=== PATIENT | female | born 1945 | race Caucasian/White ===

== ENCOUNTER 2017-09-03 15:20 | Emergency (ER) | payer OTHER ==
[~2017-09-03 15:20] MED LIST: ACETAMINOPHEN/H1 TA6 PO; BACO TOP; HIBICLENS118 ML TOP; LIO10 PO; METHOCARBAMOL500 MG PO; NEU300 PO; Rocephin IV; ULT50 PO; ZESTRIL5 MG PO
[2017-09-03 19:20] VITALS: BP 161/98
== END 2017-09-03 19:15 | disposition home or self-care (01) ==
LOC: ED 15:20
DX: S20.212A Contusion of left front wall of thorax, initial encounter (principal); S40.012A Contusion of left shoulder, initial encounter; M50.30 Other cervical disc degeneration, unspecified cervical region; M19.90 Unspecified osteoarthritis, unspecified site; W18.30XA Fall on same level, unspecified, initial encounter; Y93.89 Activity, other specified; Y99.9 Unspecified external cause status; Y92.89 Other specified places as the place of occurrence of the external cause
CPT/HCPCS: J1170

== ENCOUNTER 2019-07-01 00:49 | Emergency (ER) | payer OTHER ==
[~2019-07-01] VITALS: Ht 162.6 cm; Wt 79.4 kg
[2019-07-01 00:57] VITALS: Ht 162.6 cm; Wt 79.4 kg
[2019-07-01 03:08] VITALS: BP 155/80
== END 2019-07-01 03:08 | disposition home or self-care (01) ==
LOC: ED 00:49
DX: S39.012A Strain of muscle, fascia and tendon of lower back, initial encounter (principal); G89.29 Other chronic pain; M54.2 Cervicalgia; M19.90 Unspecified osteoarthritis, unspecified site; X50.9XXA Other and unspecified overexertion or strenuous movements or postures, initial encounter; Y93.89 Activity, other specified; Y92.099 Unspecified place in other non-institutional residence as the place of occurrence of the external cause; Y99.8 Other external cause status
CPT/HCPCS: J1885; Q0092

== ENCOUNTER 2019-08-12 12:56 | Emergency (ER) | payer OTHER ==
[~2019-08-12] VITALS: Ht 165.1 cm; Wt 66.7 kg
[2019-08-12 13:02] VITALS: Ht 165.1 cm; Wt 66.7 kg
[2019-08-12 14:27] LABS: BASOPHIL % 0.9 % (0-2); PLATELET COUNT 290 x10^3mcL (130-400); RED CELL DISTRIBUTION WIDTH 13.8 % (11.5-14.5)
[2019-08-12 15:00] LABS: CALCIUM 8.5 mg/dL (8.5-10.1); CARBON DIOXIDE 28.7 mmol/L (21-32); CHLORIDE SERUM 107 mmol/L (98-107); CREATININE SERUM 0.7 mg/dL (0.6-1.0); GLUCOSE SERUM 85 mg/dL (74-106); POTASSIUM SERUM 3.8 mmol/L (3.5-5.1); SODIUM SERUM 142 mmol/L (136-145)
[2019-08-12 15:05] LABS: ALKALINE PHOSPHATASE 113 U/L (46-116); ALT/SGPT 19 U/L (14-59); AST/SGOT 22 U/L (15-37); LIPASE 73 IU/L (73-393)
[2019-08-12 15:07] LABS: ALBUMIN 3.3 g/dL (3.4-5.0)
[2019-08-12 18:30] VITALS: BP 165/87
== END 2019-08-12 18:30 | disposition home or self-care (01) ==
LOC: ED 12:56
PROVIDERS: Emergency Medicine
DX: K59.00 Constipation, unspecified (principal)
CPT/HCPCS: J2270; Q9967

== ENCOUNTER 2019-09-15 03:39 | Emergency (ER) | payer OTHER ==
[~2019-09-15] VITALS: Ht 165.1 cm; Wt 63.5 kg
[2019-09-15 03:49] VITALS: Ht 165.1 cm; Wt 63.5 kg
[2019-09-15 05:00] VITALS: BP 154/94
== END 2019-09-15 05:37 | disposition home or self-care (01) ==
LOC: ED 03:39
DX: S32.020A Wedge compression fracture of second lumbar vertebra, initial encounter for closed fracture (principal); N39.0 Urinary tract infection, site not specified; M19.90 Unspecified osteoarthritis, unspecified site; G89.29 Other chronic pain; M54.2 Cervicalgia; X58.XXXA Exposure to other specified factors, initial encounter; Y93.89 Activity, other specified; Y92.89 Other specified places as the place of occurrence of the external cause; Y99.8 Other external cause status
CPT/HCPCS: J1885

== ENCOUNTER 2019-09-28 18:03 | Emergency (ER) | payer OTHER ==
[~2019-09-28] VITALS: Ht 165.1 cm; Wt 77.1 kg
[2019-09-28 19:00] VITALS: Ht 165.1 cm; Wt 77.1 kg
[2019-09-28 20:06] LABS: PLATELET COUNT 344 x10^3mcL (130-400); RED CELL DISTRIBUTION WIDTH 13.8 % (11.5-14.5)
[2019-09-28 20:16] LABS: CALCIUM 9.4 mg/dL (8.5-10.1); CARBON DIOXIDE 27.3 mmol/L (21-32); CHLORIDE SERUM 106 mmol/L (98-107); CREATININE SERUM 0.7 mg/dL (0.6-1.0); GLUCOSE SERUM 94 mg/dL (74-106); POTASSIUM SERUM 3.4 mmol/L (3.5-5.1); SODIUM SERUM 141 mmol/L (136-145)
[2019-09-28 20:20] LABS: ALBUMIN 3.7 g/dL (3.4-5.0); ALKALINE PHOSPHATASE 124 U/L (46-116); ALT/SGPT 19 U/L (14-59); AST/SGOT 15 U/L (15-37); BILIRUBIN TOTAL 0.72 mg/dL (0.20-1.00); LIPASE 81 IU/L (73-393); TOTAL PROTEIN, SERUM 7.5 g/dL (6.4-8.2)
[2019-09-29 00:48] VITALS: BP 158/89
== END 2019-09-29 00:48 | disposition home or self-care (01) ==
LOC: ED 18:03
PROVIDERS: Emergency Medicine
DX: S32.048A Other fracture of fourth lumbar vertebra, initial encounter for closed fracture (principal); M19.90 Unspecified osteoarthritis, unspecified site; G89.29 Other chronic pain; X58.XXXA Exposure to other specified factors, initial encounter; Y93.89 Activity, other specified; Y92.89 Other specified places as the place of occurrence of the external cause; Y99.8 Other external cause status
CPT/HCPCS: J1885; J2060; J2270; J2405

== ENCOUNTER 2019-10-14 17:27 | Inpatient (IN) | payer OTHER ==
[~2019-10-14] VITALS: Ht 165.1 cm; Wt 72.6 kg
[2019-10-14 18:53] LABS: BASOPHIL % 0.5 % (0-2); PLATELET COUNT 335 x10^3mcL (130-400); RED CELL DISTRIBUTION WIDTH 13.3 % (11.5-14.5)
[2019-10-14 19:05] LABS: CALCIUM 9.4 mg/dL (8.5-10.1); CARBON DIOXIDE 24.8 mmol/L (21-32); CHLORIDE SERUM 102 mmol/L (98-107); CREATININE SERUM 0.9 mg/dL (0.6-1.0); GLUCOSE SERUM 98 mg/dL (74-106); POTASSIUM SERUM 3.4 mmol/L (3.5-5.1); SODIUM SERUM 141 mmol/L (136-145)
[2019-10-14 19:18] LABS: ALBUMIN 3.7 g/dL (3.4-5.0); ALKALINE PHOSPHATASE 145 U/L (46-116); ALT/SGPT 20 U/L (14-59); AST/SGOT 21 U/L (15-37); BILIRUBIN TOTAL 0.5 mg/dL (0.20-1.00); TOTAL PROTEIN, SERUM 7.9 g/dL (6.4-8.2)
[2019-10-14 22:39] VITALS: BP 165/84
[2019-10-14 22:42] VITALS: Ht 165.1 cm; Wt 72.6 kg
[2019-10-15 05:35] VITALS: BP 121/68
[2019-10-15 06:05] LABS: CALCIUM 9.1 mg/dL (8.5-10.1); CARBON DIOXIDE 29.7 mmol/L (21-32); CHLORIDE SERUM 105 mmol/L (98-107); CREATININE SERUM 0.9 mg/dL (0.6-1.0); GLUCOSE SERUM 111 mg/dL (74-106); POTASSIUM SERUM 3.3 mmol/L (3.5-5.1); SODIUM SERUM 143 mmol/L (136-145)
[2019-10-15 06:13] LABS: BASOPHIL % 0.1 % (0-2); PLATELET COUNT 306 x10^3mcL (130-400); RED CELL DISTRIBUTION WIDTH 13.4 % (11.5-14.5)
[2019-10-15 08:04] VITALS: BP 143/90
[2019-10-15 09:13] LABS: microscopic required? YES; urine erythrocyte TRACE (NEGATIVE)
[2019-10-15 14:10] VITALS: BP 140/75
[2019-10-15 16:04] VITALS: BP 136/66
[2019-10-15 19:10] VITALS: BP 127/72
[2019-10-16 05:50] VITALS: BP 132/66
[2019-10-16 06:33] LABS: CALCIUM 8.9 mg/dL (8.5-10.1); CARBON DIOXIDE 28.9 mmol/L (21-32); CHLORIDE SERUM 104 mmol/L (98-107); CREATININE SERUM 0.8 mg/dL (0.6-1.0); GLUCOSE SERUM 93 mg/dL (74-106); PHOSPHOROUS 3.7 mg/dL (2.5-4.9); POTASSIUM SERUM 3.5 mmol/L (3.5-5.1); SODIUM SERUM 139 mmol/L (136-145)
[2019-10-16 06:38] LABS: BASOPHIL % 0.3 % (0-2); PLATELET COUNT 239 x10^3mcL (130-400); RED CELL DISTRIBUTION WIDTH 13.4 % (11.5-14.5)
[2019-10-16 08:30] VITALS: BP 145/82
[2019-10-16 16:16] VITALS: BP 144/80
[2019-10-16 19:15] VITALS: BP 133/66
[2019-10-17 06:07] VITALS: BP 113/71
[2019-10-17 07:18] LABS: BASOPHIL % 0.2 % (0-2); PLATELET COUNT 236 x10^3mcL (130-400); RED CELL DISTRIBUTION WIDTH 13.4 % (11.5-14.5)
[2019-10-17 07:27] LABS: CALCIUM 8.4 mg/dL (8.5-10.1); CHLORIDE SERUM 103 mmol/L (98-107); CREATININE SERUM 0.7 mg/dL (0.6-1.0); GLUCOSE SERUM 112 mg/dL (74-106); MAGNESIUM 1.9 mg/dL (1.8-2.4); PHOSPHOROUS 3.2 mg/dL (2.5-4.9); SODIUM SERUM 137 mmol/L (136-145)
[2019-10-17 08:59] VITALS: BP 138/67
[2019-10-17 13:24] LABS: POTASSIUM SERUM 2.8 mmol/L (3.5-5.1)
[2019-10-17 17:51] VITALS: BP 139/69
[2019-10-17 20:36] VITALS: BP 138/72
[2019-10-18 05:29] VITALS: BP 113/56
[2019-10-18 09:04] VITALS: BP 122/48
[2019-10-18 10:38] LABS: PLATELET COUNT 241 x10^3mcL (130-400); RED CELL DISTRIBUTION WIDTH 13.1 % (11.5-14.5)
[2019-10-18 10:41] LABS: BASOPHIL % 0 % (0-2)
[2019-10-18 10:45] LABS: CALCIUM 8.3 mg/dL (8.5-10.1); CARBON DIOXIDE 25.3 mmol/L (21-32); CHLORIDE SERUM 107 mmol/L (98-107); CREATININE SERUM 0.6 mg/dL (0.6-1.0); GLUCOSE SERUM 103 mg/dL (74-106); POTASSIUM SERUM 3.1 mmol/L (3.5-5.1); SODIUM SERUM 141 mmol/L (136-145)
[2019-10-18 13:05] VITALS: BP 122/48
== END 2019-10-18 14:05 | disposition home health service (06) | DRG 544 ==
LOC: ED 17:27 → MU 21:10
PROVIDERS: Emergency Medicine; ADMIT Internal Medicine
DX: M48.55XA Collapsed vertebra, not elsewhere classified, thoracolumbar region, initial encounter for fracture (principal); I10 Essential (primary) hypertension; M54.2 Cervicalgia; G89.29 Other chronic pain; M47.892 Other spondylosis, cervical region; Z68.28 Body mass index [BMI] 28.0-28.9, adult; Z79.891 Long term (current) use of opiate analgesic
CPT/HCPCS: 90658; 97116-GP; G0378; J1170; J2270; J3010; J3490; J7040; Q0092

== ENCOUNTER 2019-10-21 08:23 | Emergency (ER) | payer OTHER ==
[~2019-10-21] VITALS: Ht 162.6 cm; Wt 80.3 kg
[2019-10-21 08:34] VITALS: Ht 162.6 cm; Wt 80.3 kg
[2019-10-21 09:14] LABS: BASOPHIL % 0.2 % (0-2); PLATELET COUNT 392 x10^3mcL (130-400); RED CELL DISTRIBUTION WIDTH 13.1 % (11.5-14.5)
[2019-10-21 11:16] LABS: ALKALINE PHOSPHATASE 122 U/L (46-116); ALT/SGPT 17 U/L (14-59); AST/SGOT 15 U/L (15-37); BILIRUBIN TOTAL 0.35 mg/dL (0.20-1.00); CALCIUM 8.9 mg/dL (8.5-10.1); CARBON DIOXIDE 25.3 mmol/L (21-32); CHLORIDE SERUM 102 mmol/L (98-107); CREATININE SERUM 0.7 mg/dL (0.6-1.0); GLUCOSE SERUM 94 mg/dL (74-106); SODIUM SERUM 137 mmol/L (136-145); TOTAL PROTEIN, SERUM 7.3 g/dL (6.4-8.2)
[2019-10-21 11:22] LABS: POTASSIUM SERUM 2.9 mmol/L (3.5-5.1)
[2019-10-21 12:21] VITALS: BP 119/77
== END 2019-10-21 12:21 | disposition home or self-care (01) ==
LOC: ED 08:23
PROVIDERS: Emergency Medicine
DX: K57.90 Diverticulosis of intestine, part unspecified, without perforation or abscess without bleeding (principal); E87.6 Hypokalemia; G89.29 Other chronic pain; M54.5 Low back pain; Z88.1 Allergy status to other antibiotic agents; Z88.8 Allergy status to other drugs, medicaments and biological substances
CPT/HCPCS: J2270; J2405

== ENCOUNTER 2019-11-01 11:20 | Emergency (ER) | payer OTHER ==
[~2019-11-01] VITALS: Ht 162.6 cm; Wt 68.0 kg
[2019-11-01 11:34] VITALS: Ht 162.6 cm; Wt 68.0 kg
[2019-11-01 13:24] LABS: BASOPHIL % 0.4 % (0-2); RED CELL DISTRIBUTION WIDTH 13.7 % (11.5-14.5)
[2019-11-01 13:53] LABS: PLATELET COUNT 411 x10^3mcL (130-400)
[2019-11-01 14:32] LABS: CALCIUM 9.5 mg/dL (8.5-10.1); CARBON DIOXIDE 25.8 mmol/L (21-32); CHLORIDE SERUM 105 mmol/L (98-107); CREATININE SERUM 0.8 mg/dL (0.6-1.0); GLUCOSE SERUM 87 mg/dL (74-106); POTASSIUM SERUM 3.8 mmol/L (3.5-5.1); SODIUM SERUM 142 mmol/L (136-145)
[2019-11-01 14:37] LABS: ALKALINE PHOSPHATASE 119 U/L (46-116); ALT/SGPT 18 U/L (14-59); AST/SGOT 17 U/L (15-37); BILIRUBIN TOTAL 0.5 mg/dL (0.20-1.00); TOTAL PROTEIN, SERUM 7.2 g/dL (6.4-8.2)
[2019-11-01 14:38] LABS: ALBUMIN 3.2 g/dL (3.4-5.0)
[2019-11-01 17:26] VITALS: BP 180/100
== END 2019-11-01 17:05 | disposition short-term general hospital (02) ==
LOC: ED 11:20
PROVIDERS: Emergency Medicine
DX: M54.5 Low back pain (principal); M19.90 Unspecified osteoarthritis, unspecified site; G89.29 Other chronic pain; Z90.49 Acquired absence of other specified parts of digestive tract
CPT/HCPCS: 36415; J2270; J3490; Q0162

== ENCOUNTER 2019-11-01 18:19 | Emergency (ER) | payer OTHER ==
[2019-11-01 20:15] VITALS: BP 162/87
== END 2019-11-01 20:15 | disposition home or self-care (01) ==
LOC: ED 18:19
DX: I10 Essential (primary) hypertension (principal); G89.29 Other chronic pain; M19.90 Unspecified osteoarthritis, unspecified site; M54.9 Dorsalgia, unspecified

== ENCOUNTER 2019-11-19 08:52 | Emergency (ER) | payer OTHER ==
[~2019-11-19] VITALS: Ht 162.6 cm; Wt 68.0 kg
[2019-11-19 08:56] VITALS: Ht 162.6 cm; Wt 68.0 kg
[2019-11-19 12:26] VITALS: BP 164/84
== END 2019-11-19 12:48 | disposition home or self-care (01) ==
LOC: ED 08:52
DX: G89.29 Other chronic pain (principal); M54.5 Low back pain; M50.30 Other cervical disc degeneration, unspecified cervical region
CPT/HCPCS: J1885; J3010

== ENCOUNTER 2020-01-28 20:56 | Emergency (ER) | payer OTHER ==
[~2020-01-28] VITALS: Ht 162.6 cm; Wt 68.5 kg
[2020-01-28 21:06] VITALS: BP 116/79; Ht 162.6 cm; Wt 68.5 kg
== END 2020-01-28 22:11 | disposition home or self-care (01) ==
LOC: ED 20:56
DX: G89.29 Other chronic pain (principal); M54.5 Low back pain; Z98.890 Other specified postprocedural states
CPT/HCPCS: J1885; J3010